=== PATIENT | female | born 1980 | race Caucasian/White ===

== ENCOUNTER 2017-11-28 12:51 | Emergency (ER) | payer SELFPAY ==
[~2017-11-28] VITALS: Ht 160 cm; Wt 72.7 kg
[~2017-11-28 12:51] MED LIST: HYDR-3533 PO; NALT50TA PO; SERO50TA4 PO
[2017-11-28 12:53] VITALS: BP 150/86; PULSE 101; RESP 16; TEMP 98.2; O2SAT 99
[2017-11-28] MEDS ORDERED: AZIT250T3 PO ×2 (13:30→13:56)
--- NOTE | 2017-11-28 13:31 | PD ---
HPI Chief Complaint: Cold / Flu Symptoms Time Seen by Provider: 13:23 Travel History International Travel<30 days: No Contact w/Intl Traveler<30days: No Traveled to known affect area: No History of Present Illness HPI 37-year-old female here with sinus pain/pressure and productive cough 6 days. Reports subjective fevers. Symptom severity is moderate. No aggravating or alleviating factors. Reporting mucopurulent nasal discharge and yellow sputum. PFSH Past Medical History Hx Anticoagulant Therapy: No Bipolar Disorder: Yes Diabetes: No Diminished Hearing: No Psychiatric: Yes Immunizations Current: No Tetanus Vaccination: Unknown Influenza Vaccination: No ?: Not LMP: 2 weeks ago : 2 Para: 3 Ovarian Cysts: Yes Past Surgical History Surgical History: No Previous Surgery Other Surgery: Yes (LEEP OF CERVIX) Social History Alcohol Use: Yes (on the weekends) Tobacco Use: Yes (one pack of cigarettes per day) Substance Use: No Allergies-Medications (Allergen,Severity, Reaction): Coded Allergies: No Known Allergies (Verified Adverse Reaction, Unknown, 11/28/17) Reported Meds & Prescriptions Reported Meds & Active Scripts Active Lortab 5 mg/325 mg (Hydrocodone/Acetaminophen 5 mg/325 mg) 1 Tab 1-2 Tab PO Q4H PRN Reported Naltrexone Hcl (Naltrexone HCl) 50 Mg Tab 10 Mg PO DAILY Seroquel XR 50 mg (Quetiapine Fumarate) 50 Mg Tab 25 Mg PO HS Review of Systems Except as stated in HPI: all other systems reviewed are Neg General / Constitutional: Positive: Fever Eyes: No: Visual changes Cardiovascular: No: Chest Pain or Discomfort Respiratory: Positive: Cough Gastrointestinal: No: Abdominal Pain Genitourinary: No: Dysuria Physical Exam Narrative GENERAL: Alert and well-appearing 37-year-old female SKIN: Warm and dry. HEAD: Normocephalic. EYES: No injection or drainage. Ears/nose/throat:+TTP frontal and maxillary sinuses. Mild pharyngeal erythema. No tonsillar hypertrophy or exudate. Uvula is midline. Airway is patent. NECK: Supple. No meningismus CARDIOVASCULAR: Regular rate and rhythm. RESPIRATORY: Breath sounds equal bilaterally. No accessory muscle use. Rhonchorous cough GASTROINTESTINAL: Abdomen soft, non-tender, nondistended. MUSCULOSKELETAL: No cyanosis, or edema. BACK: No CVA tenderness. Data Data Last Documented VS Vital Signs Date Time Temp Pulse Resp B/P (MAP) Pulse Ox O2 Delivery O2 Flow Rate FiO2 11/28/17 12:53 98.2 101 16 150/86 (107) 99 MDM Medical Decision Making Medical Screen Exam Complete: Yes Emergency Medical Condition: Yes Differential Diagnosis Bronchitis, pneumonia, influenza Narrative Course 37-year-old female here with acute sinusitis and bronchitis. She is nontoxic appearing. She'll be treated with azithromycin. Diagnosis Primary Impression: Bronchitis Referrals: Primary Care Physician Departure Forms: Tests/Procedures, Work Release Enter return to work date: Dec 01, 2017 Additional Instructions: Tylenol and ibuprofen for fever and pain. Antibiotic as directed. Follow-up the primary doctor. Scripts Azithromycin (Azithromycin) 250 Mg Tab 250 MG PO DIRECTED for Infection, #6 TAB 0 Refills Take 2 tabs (500 mg) on day 1 then 1 tab daily x 4 days. Prov: Barb Covarrubias 11/28/17 Disposition: 01 DISCHARGE HOME Condition: Stable Barb Covarrubias Nov 28, 2017 13:31
== END 2017-11-28 13:51 | disposition home or self-care (01) ==
LOC: PHEFT 12:51
DX: J40 Bronchitis, not specified as acute or chronic (principal); F17.210 Nicotine dependence, cigarettes, uncomplicated
CPT/HCPCS: 99283

== ENCOUNTER 2018-01-12 12:20 | Emergency (ER) | payer SELFPAY ==
[~2018-01-12 12:20] MED LIST changes: +AZIT250T3 PO
[2018-01-12 12:46] VITALS: BP 134/89; PULSE 95; RESP 16; TEMP 98; O2SAT 100
[2018-01-12 15:07] LABS: BILIRUBIN, URINE NEG (NEG); BLOOD, URINE NEG (NEG); GLUCOSE,URINE NEG (NEG); KETONE, URINE NEG (NEG); NITRITE,URINE NEG (NEG); PH, URINE 7.5 (5.0-8.5); SQUAMOUS EPITHELIAL CELL URINE 5 /hpf (0-5); URINE COLOR YELLOW (YELLW/STRAW); URINE LEUKOCYTE ESTERASE SMALL (NEG)
--- NOTE | 2018-01-12 15:17 | RADRPT ---
EXAM DATE/TIME: 01/12/2018 14:30 [facility] COMPARISON: US PELVIS,COMP,W DOPLR, TRANS VAG, April 22, 2015, 10:21. INDICATIONS : Pelvic pain. MEDICAL HISTORY : Cervical cancer. Ovarian cysts. Bipolar disorder. SURGICAL HISTORY : Tubal ligation. LEEP x3. ENCOUNTER: Initial ACUITY: 3 days PAIN SCORE: 8/10 LOCATION: Bilateral pelvis MEASUREMENTS: UTERUS: 8.8 x 5.9 x 4.4 cm ENDOMETRIAL STRIPE: 13 mm RIGHT OVARY: 3.4 x 2.8 x 2.7 cm LEFT OVARY: 2.3 x 1.2 x 1.3 cm FINDINGS: UTERUS: 2.3 cm hypoechoic area within the endometrium, nonspecific. RIGHT OVARY: 1.9 cm cyst with good Doppler flow LEFT OVARY: 0.7 assessment with Doppler flow MISCELLANEOUS: Nabothian cyst with trace free fluid. CONCLUSION: Trace free fluid in the pelvis. Symmetrical blood flow to both ovaries. Small ovari an cysts. These were described to 11/03/13 Eyad Pierre MD FACR on January 12, 2018 at 15:13 Board Certified Radiologist. This report was verified electronically.
--- NOTE | 2018-01-12 15:23 | PD ---
HPI . Abdominal pain Chief Complaint: GI Complaint Time Seen by Provider: 14:39 Travel History International Travel<30 days: No Contact w/Intl Traveler<30days: No Traveled to known affect area: No History of Present Illness HPI Patient presents with a chief complaint of left lower quadrant abdominal pain. Her symptoms started 3 days ago when she had acute left lower quadrant pain that caused her to be nauseous. She was seen at an outside hospital and had a urinalysis, blood work and a CT of her abdomen and pelvis. She states that they told her that she might have a urinary tract infection and discharged her with an antibiotic and Lortab. She states that her symptoms have improved since that time but they are still present. She states that she had an episode of increased pain last night. She contacted her special delivery messenger today who instructed her to present here for an ultrasound to look for an ovarian cyst. The patient reports a history of ovarian cyst. Patient rates her pain as 7/10 with no modifying factors. Her only associated symptom is occasional nausea when the pain is severe. PFSH Past Medical History Hx Anticoagulant Therapy: No Bipolar Disorder: Yes Cancer: Yes (CERVICAL CA AGE 17) Diabetes: No Diminished Hearing: No Psychiatric: Yes Immunizations Current: No ?: Not LMP: 01/04/18 : 2 Para: 3 Ovarian Cysts: Yes Past Surgical History Other Surgery: Yes (LEEP OF CERVIX X 3) Social History Alcohol Use: Yes (on the weekends) Tobacco Use: Yes (one pack of cigarettes per day) Substance Use: No Allergies-Medications (Allergen,Severity, Reaction): Coded Allergies: No Known Allergies (Verified Adverse Reaction, Unknown, 01/12/18) Reported Meds & Prescriptions Reported Meds & Active Scripts Active Azithromycin 250 Mg Tab 250 Mg PO DIRECTED Take 2 tabs (500 mg) on day 1 then 1 tab daily x 4 days. Review of Systems Except as stated in HPI: all other systems reviewed are Neg General / Constitutional: No: Fever, Chills Gastrointestinal: Positive: Nausea Genitourinary: No: Urgency, Frequency, Dysuria Physical Exam Narrative GENERAL: Awake and alert and in no acute distress. SKIN: Warm and dry. Normal color and turgor. HEAD: Normocephalic/atraumatic. EYES: Pupils are equal. Extraocular movements are intact. NECK: Normal range of motion. CARDIOVASCULAR: Regular rate and rhythm. RESPIRATORY: Nonlabored respirations. ABDOMEN: Soft and nontender throughout. I was distracting her as I was examining her. : No CVA tenderness. MUSCULOSKELETAL: Atraumatic. NEUROLOGICAL: Nonfocal. PSYCHIATRIC: Appropriate mood and affect. Data Data Last Documented VS Vital Signs Date Time Temp Pulse Resp B/P (MAP) Pulse Ox O2 Delivery O2 Flow Rate FiO2 01/12/18 12:46 98.0 95 16 134/89 (104) 100 Orders Orders Urinalysis - C+S If Indicated (01/12/18 13:37) Ed Urine Pregnancytest Poc (01/12/18 13:37) Us Pelvis Comp W Dop Transvag (01/12/18 13:37) Labs Laboratory Tests Test 01/12/18 14:35 Urine Color YELLOW Urine Turbidity CLEAR Urine pH 7.5 Urine Specific [place] 1.010 Urine Protein NEG mg/dL Urine Glucose (UA) NEG mg/dL Urine Ketones NEG mg/dL Urine Occult Blood NEG Urine Nitrite NEG Urine Bilirubin NEG Urine Urobilinogen LESS THAN 2.0 MG/DL Urine Leukocyte Esterase SMALL Urine WBC 3 /hpf Urine Squamous Epithelial Cells 5 /hpf Microscopic Urinalysis Comment CULT NOT INDICATED MDM Medical Decision Making Medical Screen Exam Complete: Yes Emergency Medical Condition: Yes Differential Diagnosis Differential diagnosis of pelvic pain includes but is not limited to UTI, PID, ectopic , spontaneous AB, constipation, viral illness Narrative Course This patient presents for evaluation of left pelvic pain. She is specifically here requesting an ultrasound to rule out an ovarian cyst. She had other studies done at an outside hospital 2 days ago which were apparently unremarkable. She does state that her pain is improving. Acute, severe pain followed by improvement with definitely go along with a ruptured ovarian cyst. UA shows contaminant but no sign of infection. Last Impressions Abdomen/Pelvis/Transvag US 01/12/18 [id number] Signed Impressions: Service Date/Time: Friday, January 12, 2018 14:30 - CONCLUSION: Trace free fluid in the pelvis. Symmetrical blood flow to both ovaries. Small ovarian cysts. These were described to 11/03/13 Eyad Pierre MD FACR No reversible cause for her left lower quadrant abdominal pain has been found. She looks very comfortable. She will be discharged home. Diagnosis Primary Impression: Pelvic pain in female Patient Instructions: General Instructions, Pelvic Pain (ED) Disposition: 01 DISCHARGE HOME Condition: Stable Yesenia Vazquez MD Jan 12, 2018 15:23
== END 2018-01-12 16:30 | disposition home or self-care (01) ==
LOC: NEPD 12:20
DX: R10.2 Pelvic and perineal pain (principal); F17.210 Nicotine dependence, cigarettes, uncomplicated
CPT/HCPCS: 76830; 76856; 81001; 84703; 93975; 99284